=== PATIENT | female | born 1995 | race Caucasian/White ===

== ENCOUNTER 2024-02-25 12:34 | Emergency (ER) | payer OTHER ==
[~2024-02-25] VITALS: Ht 195.6 cm; Wt 66.0 kg
[2024-02-25 12:40] VITALS: TEMP 98.3; O2SAT 96
[2024-02-25] MEDS: SODIUM CHLORIDE 0.9% 1,000 ML IV ONE ×2 (13:33→14:26)
[2024-02-25 13:36] VITALS: BP 126/78; PULSE 79; RESP 16
[2024-02-25] MEDS: MORPHINE SULFATE 4 MG/ML INJ (FOR IV/IM USE) IV STA (13:36)
[2024-02-25] MEDS: ONDANSETRON HCL 4MG/2ML INJ IV STA (13:36)
[2024-02-25] MEDS: SUMATRIPTAN SUCCINATE 6MG/0.5ML VIAL SUBCUT ONE (15:17)
[2024-02-25] MEDS: KETOROLAC 15MG/ML VIAL IV ONE (16:05)
[2024-02-25] MEDS ORDERED: IMIT25 MT (16:13)
== END 2024-02-25 16:26 | disposition home or self-care (01) ==
LOC: ER 12:34
DX: R51.9 Headache, unspecified (principal); Z90.49 Acquired absence of other specified parts of digestive tract
CPT/HCPCS: 96361; 96372; 96374; 96375; 99284; J2405; J3030; J2270; J7030; Z7610